=== PATIENT | female | born 1955 | race Caucasian/White ===

== ENCOUNTER 2018-11-28 09:24 | Day surgery (SDC) | payer OTHER ==
[~2018-11-28] VITALS: Ht 160 cm; Wt 68.0 kg
[2018-11-28] MEDS ORDERED: MIDAZOLAM 2 MG/2 ML VIAL ONE (12:09)
[2018-11-28] MEDS ORDERED: fentaNYL 0.05 MG/ML VIAL ONE (12:09)
[2018-11-28] MEDS ORDERED: LIDOCAINE 2% 100 MG/5 ML UJET TP ONE (12:09)
[2018-11-28] MEDS ORDERED: fentaNYL 0.05 MG/ML VIAL IVP ONE (12:21)
== END 2018-11-28 13:35 | disposition home or self-care (01) ==
LOC: MDS 09:24 → MMU 09:24 → MDS 13:35
PROVIDERS: ATTEND Internal Medicine Gastroenterology
DX: D12.7 Benign neoplasm of rectosigmoid junction (principal); E78.00 Pure hypercholesterolemia, unspecified; E66.3 Overweight; Z68.26 Body mass index [BMI] 26.0-26.9, adult; Z90.710 Acquired absence of both cervix and uterus; Z90.49 Acquired absence of other specified parts of digestive tract; Z98.890 Other specified postprocedural states; Z72.89 Other problems related to lifestyle; Z79.899 Other long term (current) drug therapy
CPT/HCPCS: 45385; 88305; J3010; J2250